=== PATIENT | female | born 1960 | race Caucasian/White ===

== ENCOUNTER 2018-03-27 13:10 | Emergency (ER) | payer MEDICAID, OTHER ==
[2018-03-27 14:53] LABS: PLATELET COUNT 225 10^3/uL (150-400)
[2018-03-27] MEDS ORDERED: NS 1,000 ML IV ONE (15:07)
--- NOTE | 2018-03-27 15:08 | EDPHY ---
H & P Time Seen by Provider: 03/27/18 14:53 HPI/ROS: CHIEF COMPLAINT: Right lower abdominal pain HISTORY OF PRESENT ILLNESS: History of appendicitis and appendectomy, history of diverticulitis, hysterectomy. Started having symptoms last night at 8:00 p.m., sharp pain in her right lower quadrant of her abdomen, no radiating to her right side back and upwards. Similar to previous diverticulitis, 4 to 6/10 pain. Was not bad with pushing on it yesterday but she feels like today it is worse with palpation. Went to urgent care was referred here. Associated with nausea and mild headache since about noon. She did have normal bowel movement today, no urinary symptoms. REVIEW OF SYSTEMS: Eye: no change in vision ENT: no sore throat Cardiac: no chest pain or syncope Pulmonary: no cough or SOB Abdomen: HPI Musculoskeletal: HPI Skin: no rash Neuro: no headache Constitutional: no fever : no urinary symptoms A comprehensive 10 point review of systems is otherwise negative aside from elements mentioned in the history of present illness. PAST MEDICAL HISTORY: As in HPI also complex migraines, hypothyroid, depression Social history: No alcohol, nonsmoker General Appearance: Alert and conversant, cooperative. Eyes: No scleral icterus. ENT, Mouth: Dry mucous membranes. Respiratory: Normal respiratory effort, breath sounds equal, lungs are clear to auscultation. Cardiovascular: Regular rate and rhythm. Gastrointestinal: Right upper quadrant and right lower quadrant tenderness to palpation. No rebound or guarding, no pulsatile mass. Neurological: Alert, face symmetric, normal motor and sensory in extremities. Skin: Warm and dry, no rashes. Musculoskeletal: No peripheral edema. Psychiatric: Not agitated. Emergency Department course/MDM: CT scan abdomen and pelvis discussed and consented, to evaluate for diverticulitis or micro perforation or abscess, screen for ovarian problem. LFTs and lipase added for right upper quadrant tenderness but less likely as her pain started in the right lower quadrant. Declined pain medication initially. IV normal saline 1 L for decreased oral intake and clinically dry mucous membranes with dehydration. 1750: Results discussed, right paraovarian mass discussed and ultrasound reviewed. She will be referred to on-call OBGYN. Recommended symptomatic treatment, pain medications declined by the patient. Smoking Status: Never smoked Constitutional: Initial Vital Signs Temperature (C) 36.7 C 03/27/18 13:20 Heart Rate 62 03/27/18 13:20 Respiratory Rate 16 03/27/18 13:20 Blood Pressure 120/76 03/27/18 13:20 O2 Sat (%) 100 03/27/18 13:20 O2 Delivery Mode Room Air Allergies/Adverse Reactions: Sulfa (Sulfonamide Antibiotics) Allergy (Verified 03/27/18 13:19) Home Medications: Medication Instructions Recorded Cyanocobalamin [Vitamin B12 (*)] 1,000 mcg PO DAILY 03/06/14 Melatonin [Melatonin 3 MG (*)] 3 mg PO HS 03/06/14 traMADol [Ultram 50 mg (*)] 50 mg PO PRN PRN 03/06/14 Cholecalciferol Vit D3 [Vitamin D3 2,500 units PO DAILY 03/07/14 (OTC)] Sertraline HCl 03/27/18 Vitamin B2 03/27/18 Medical Decision Making - Diagnostics Imaging Results: Imaging Impressions Abdomen CT 03/27/18 15:25 Impression: 1. No acute abdominopelvic process. 2. Mild enlargement of the right ovary since 2014. There is also a new left adnexal cyst measuring 2.5 cm. If patient is having pelvic symptoms, would consider ultrasound evaluation. 3. Trace free fluid in the pelvis. 4. Minimal interval increase in size of a right lower lobe nodule, almost certainly benign. Findings and recommendations discussed with KARLO CASTELLANOS at 1613 hour, 2018. Abdomen Ultrasound 03/27/18 16:17 Impression: 1. Nonshadowing gallbladder polyp measuring 4 mm. 2. No cholelithiasis or biliary ductal dilation. 3. Probable hepatic 1.2 cm cyst. No definite solid hepatic lesions. Findings and recommendations discussed with Emergency Department physician, KARLO CASTELLANOS at 17:26 hour, 03/27/2018. Final report concurs with initial preliminary interpretation. Pelvic/Renal Ultrasound 03/27/18 16:17 Impression: 1. A 2.4-cm solid-appearing mass in the right ovary. Differential would include benign and malignant neoplasm. Recommend gynecology consultation. Ultrasound follow-up or MRI pelvis could be performed for further evaluation as clinically warranted. 2. A 2.3-cm simple-appearing cyst left ovary. 3. Status post hysterectomy. Results called and discussed with Karlo Castellanos M.D., on March 27, 2018 at 1738. Imaging: Discussed imaging studies w/ paint formulator Radiologist Differential Diagnosis: Differential considered including but not limited to ovarian cyst or mass, ovarian torsion, bowel obstruction, diverticulitis, gallbladder problem or pancreatitis, UTI or pyelonephritis or renal colic, intra-abdominal vascular. - Data Points Laboratory Results: Laboratory Results 03/27/18 14:30 03/27/18 14:30 03/27/18 03/27/18 03/27/18 15:08 14:30 14:30 WBC 3.64 10^3/uL L 10^3/uL (3.80-9.50) RBC 4.59 10^6/uL 10^6/uL (4.18-5.33) Hgb 15.6 g/dL g/dL (12.6-16.3) Hct 44.2 % % (38.0-47.0) MCV 96.3 fL fL (81.5-99.8) MCH 34.0 pg pg (27.9-34.1) MCHC 35.3 g/dL g/dL (32.4-36.7) RDW 11.5 % % (11.5-15.2) Plt Count 225 10^3/uL 10^3/uL (150-400) MPV 10.0 fL fL (8.7-11.7) Neut % (Auto) 59.3 % % (39.3-74.2) Lymph % (Auto) 31.0 % % (15.0-45.0) [place] % (Auto) 6.9 % % (4.5-13.0) Eos % (Auto) 1.4 % % (0.6-7.6) Baso % (Auto) 1.1 % % (0.3-1.7) Nucleat RBC Rel Count 0.0 % % (0.0-0.2) Absolute Neuts (auto) 2.16 10^3/uL 10^3/uL (1.70-6.50) Absolute Lymphs (auto) 1.13 10^3/uL 10^3/uL (1.00-3.00) Absolute Monos (auto) 0.25 10^3/uL L 10^3/uL (0.30-0.80) Absolute Eos (auto) 0.05 10^3/uL 10^3/uL (0.03-0.40) Absolute Basos (auto) 0.04 10^3/uL 10^3/uL (0.02-0.10) Absolute Nucleated RBC 0.00 10^3/uL 10^3/uL (0-0.01) Immature Gran % 0.3 % % (0.0-1.1) Immature Gran # 0.01 10^3/uL 10^3/uL (0.00-0.10) Sodium 139 mEq/L mEq/L (135-145) Potassium 4.2 mEq/L mEq/L (3.5-5.2) Chloride 104 mEq/L mEq/L (97-110) Carbon Dioxide 27 mEq/l mEq/l (22-31) Anion Gap 8 mEq/L mEq/L (6-14) BUN 18 mg/dL mg/dL (7-23) Creatinine 0.7 mg/dL mg/dL (0.6-1.0) Estimated GFR > 60 Glucose 91 mg/dL mg/dL (70-100) Calcium 9.7 mg/dL mg/dL (8.5-10.4) Total Bilirubin 1.4 mg/dL mg/dL (0.1-1.4) Conjugated Bilirubin 1.0 mg/dL H mg/dL (0.0-0.5) Unconjugated Bilirubin 0.4 mg/dL mg/dL (0.0-1.1) AST 61 IU/L H IU/L (14-46) ALT 18 IU/L IU/L (9-52) Alkaline Phosphatase 70 IU/L IU/L (38-126) Total Protein 8.3 g/dL H g/dL (6.3-8.2) Albumin 5.3 g/dL H g/dL (3.5-5.0) Lipase 130 IU/L IU/L (23-300) Specimen Hemolysis 256 Urine Color Urine Appearance Urine pH Ur Specific [place] Urine Protein Urine Ketones Urine Blood Urine Nitrate Urine Bilirubin Urine Urobilinogen Ur Leukocyte Esterase Urine Glucose 03/27/18 13:25 WBC RBC Hgb Hct MCV MCH MCHC RDW Plt Count MPV Neut % (Auto) Lymph % (Auto) [place] % (Auto) Eos % (Auto) Baso % (Auto) Nucleat RBC Rel Count Absolute Neuts (auto) Absolute Lymphs (auto) Absolute Monos (auto) Absolute Eos (auto) Absolute Basos (auto) Absolute Nucleated RBC Immature Gran % Immature Gran # Sodium Potassium Chloride Carbon Dioxide Anion Gap BUN Creatinine Estimated GFR Glucose Calcium Total Bilirubin Conjugated Bilirubin Unconjugated Bilirubin AST ALT Alkaline Phosphatase Total Protein Albumin Lipase Specimen Hemolysis Urine Color PALE YELLOW Urine Appearance CLEAR Urine pH 5.0 (5.0-7.5) Ur Specific [place] 1.002 (1.002-1.030) Urine Protein NEGATIVE (NEGATIVE) Urine Ketones NEGATIVE (NEGATIVE) Urine Blood NEGATIVE (NEGATIVE) Urine Nitrate NEGATIVE (NEGATIVE) Urine Bilirubin NEGATIVE (NEGATIVE) Urine Urobilinogen NEGATIVE EU EU (0.2-1.0) Ur Leukocyte Esterase NEGATIVE (NEGATIVE) Urine Glucose NEGATIVE (NEGATIVE) Medications Given: Discontinued Medications Sodium Chloride (Ns) 1,000 mls @ 0 mls/hr IV EDNOW ONE; Wide Open PRN Reason: Protocol Stop: 03/27/18 15:08 Last Admin: 03/27/18 15:32 Dose: 1,000 mls Departure - Departure Disposition: Home, Routine, Self-Care Clinical Impression: Ovarian mass, right Condition: Good Instructions: Acute Abdominal Pain (ED) Additional Instructions: Please follow-up this week with Dr. Carson for evaluation of the right-sided ovarian mass seen on the CT and ultrasound. Referrals: Nikki Carson MD [Medical Doctor] - As per Instructions
[2018-03-27] MEDS ORDERED: IOPAMIDOL (ISOVUE 370) 100 ML BTL IV ONE (15:34)
[2018-03-27 18:06] VITALS: BP 125/86
== END 2018-03-27 18:08 | disposition home or self-care (01) ==
DX: N83.9 Noninflammatory disorder of ovary, fallopian tube and broad ligament, unspecified (principal)
CPT/HCPCS: Q9967

== ENCOUNTER → 2018-05-07 | Outpatient (CLI) | payer OTHER | LOC: BMCIMAGING 15:00 | PROVIDERS: ATTEND Hospitalist | DX: Z12.31 Encounter for screening mammogram for malignant neoplasm of breast (principal) ==